=== PATIENT | female | born 1970 | race American Indian/Alaskan Native ===

== ENCOUNTER → 2022-11-24 07:50 | Outpatient (BNVA) | payer OTHER, SELFPAY | PROVIDERS: PCP Internal Medicine; Visit Provider Internal Medicine | DX: M25.512 Pain in left shoulder (principal) | CPT/HCPCS: 73030; 99203 ==

== ENCOUNTER → 2022-12-01 08:00 | Outpatient (BNVA) | payer OTHER, SELFPAY | PROVIDERS: PCP Internal Medicine; Visit Provider Internal Medicine | DX: M25.512 Pain in left shoulder (principal) | CPT/HCPCS: 99213 ==

== ENCOUNTER 2022-12-04 15:00 | Outpatient (REF) | payer OTHER, SELFPAY ==
--- NOTE | ~2022-12-04 | MR_ITS ---
EXAMINATION: MR SHOULDER WITHOUT CONTRAST, LEFT CLINICAL INFORMATION: Left shoulder pain and swelling. Decreased range of motion. Weakness. COMPARISON: Left shoulder radiographs dated 11/24/2022. TECHNIQUE: Multisequence MR imaging of the left shoulder was obtained without contrast on a high-field strength scanner. FINDINGS: ROTATOR CUFF: Complete versus near-complete supraspinatus tendon tear with thin posterior tendon fibers possibly remaining intact. Overall tearing measures up to 3.2 x 3.0 cm (AP by ML) with retraction of the torn tendon fibers to the humeral head apex. Mild infraspinatus tendinosis with anterior articular surface partial tearing. [id number] subscapularis tendinosis with superior articular surface partial tearing measuring up to 2.4 cm in ML dimension. Mild supraspinatus muscle atrophy. BICEPS: Intact. CORACOACROMIAL ARCH: The undersurface of the acromion is curved with subacromial spurring. Mild acromioclavicular osteoarthritis. LABRUM/CAPSULE: No labral tear. Intact inferior joint capsule. GLENOHUMERAL JOINT/MARROW: Intact articular cartilage. No acute osseous injury. Small joint effusion. MR/MR shoulder LT wo con IMPRESSION: 1. Complete versus near-complete supraspinatus tendon tear with thin posterior tendon fibers possibly remaining intact. Tear measures 3.2 x 3.0 cm (AP x ML) with retraction of the torn tendon fibers to the humeral head apex. Mild supraspinatus muscle atrophy. 2. Mild infraspinatus tendinosis with anterior articular surface partial tearing. [id number] subscapularis tendinosis with superior articular surface partial tearing. 3. Mild acromioclavicular osteoarthritis with subacromial spurring. 4. Small glenohumeral joint effusion.
== END 2022-12-04 15:01 | disposition home or self-care (01) ==
LOC: HO.MRI 15:00
PROVIDERS: PCP Internal Medicine; Visit Provider Internal Medicine
DX: M25.512 Pain in left shoulder (principal)
CPT/HCPCS: 73221

== ENCOUNTER 2022-12-09 09:00 | Outpatient (RCR) | payer OTHER, SELFPAY ==
--- NOTE | 2022-12-07 09:55 | MHC.PT.EP ---
[facility] [place] Office [place] Office [place] Office [address] Dilip Solis [address] [phone] F: [phone] F: [phone] F: [phone] F: [phone] Physical Therapy Plan of Care Date of Evaluation: Date of Surgery: Diagnosis: L RTC injury Assessment: 52 y/o RHD female referred to PT from work connection for L RTC injury. 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 Injury occurred while at work 09/10/22 as she was getting out of the engine wearing scba pack and it got caught in the seatbelt pulling her back into the engine. She felt immediate pain L anterior shoulder. She had an MRI 12/03/22 and awaiting results. Currently pain and difficulty with grooming, reaching, carrying, lifting, and work duties. S/s consistent with impingement and ?RTC tear secondary to decreased L shoulder AROM, full painfree PROM, TTP, decreased L RTC and biceps strength, and noted shoulder shrug mechanics. Recommend PT 3x/week for 3 weeks and then an additional 2x/week for 3 more weeks to address impairments, implement HEP, and optimize functional mobility. Frequency and Duration: The patient will be seen 3x/week for 6 weeks Short Term Goals: 3 weeks Compliant with HEP Pt will demonstrate increased L shoulder flexion and abduction AROM to >130* for improved ability to reach OH Pt will be able to perform grooming with pain <3/10 Piling Setter Goals: 6 weeks I with HEP and self management of sx Pt will demonstrate L shoulder strength to 4/5 to facilitate ability to perform lifting > 25# with pain < 3/10 and proper mechanics Pt will demonstrate ability to perform all carrying ADL's without difficulty and pain < 3/10 Treatment Plan: Modalities to reduce pain, spasms and effusion. Manual therapy to restore motion and function. Therapeutic exercise to improve strength and flexibility. Neuromuscular re-education for posture and balance. Therapeutic activities to return to functional activities of daily living. Electronically signed by: Sarah Zaidi PT Please sign and return to therapist. Thank you for your referral.
--- NOTE | 2023-01-08 10:18 | MHC.PT.DC ---
[facility] [place] Office [place] Office [place] Office [address] Dilip Solis [address] [phone] F: [phone] F: [phone] F: [phone] F: [phone] Physical Therapy Discharge Report Diagnosis: L RTC injury Date of Surgery: Date of Evaluation: 12/07/22 Date of Discharge: 01/08/23 Treatments to Date: 2 Cancellations to Date: 0 No Shows to Date: 0 Discharge Status: Discharge Summary: Pt called to cancel all appointments following MRI and MD appointment d/t RTC tear and she may be undergoing repair. D/c at this time following 30-day hold. Electronically signed by: Sarah Zaidi PT Please sign and return to therapist. Thank you for your referral.
== END 2023-01-08 10:18 | disposition home or self-care (01) ==
LOC: HO.PTCHIC 09:00
PROVIDERS: PCP Internal Medicine; Visit Provider Internal Medicine
DX: S46.002D Unspecified injury of muscle(s) and tendon(s) of the rotator cuff of left shoulder, subsequent encounter (principal)
CPT/HCPCS: 97110; 97140; 97161

== ENCOUNTER → 2022-12-10 09:33 | Outpatient (BNVA) | payer OTHER, SELFPAY | PROVIDERS: PCP Internal Medicine; Visit Provider Internal Medicine | DX: M25.512 Pain in left shoulder (principal) | CPT/HCPCS: 99213 ==

== ENCOUNTER → 2022-12-17 09:10 | Outpatient (BNVA) | payer OTHER, SELFPAY | PROVIDERS: PCP Internal Medicine; Visit Provider Internal Medicine | DX: M25.512 Pain in left shoulder (principal) | CPT/HCPCS: 99213 ==

== ENCOUNTER 2024-10-02 06:08 | Emergency (ER) | payer BC, SELFPAY ==
[2024-10-02 06:53] VITALS: BMI 41.2
--- NOTE | 2024-10-02 07:23 | ED.GENADULT ---
HPI - General Adult General Chief complaint: General Medical Stated complaint: pain right arm Time Seen by Provider: 10/02/24 07:22 Source: patient, RN notes reviewed and old records reviewed Mode of arrival: ambulatory Limitations: no limitations History of Present Illness ED Provider: [facility] narrative: Patient is a 54-year-old female presenting to the emergency department with complaint of pain to posterior and medial right upper arm, right side and right posterior shoulder for the past week. States has been using KT tape for a bicep tear, initially attributed the discomfort to that. States my skin hurts. Denies fevers, did recently have norovirus. Reports history of chicken pox in the past. Has been taking Tylenol for the discomfort. MD complaint: arm pain Onset (ago): week(s) Related Data Previous Rx's ?Medication ?Instructions ?Recorded gabapentin 100 mg capsule 100 mg PO TID #21 caps 10/02/24 valacyclovir 1 gram tablet 1,000 mg PO TID #21 tabs 10/02/24 Allergies Allergy/AdvReac Type Severity Reaction Status Date / Time No Known Allergies Allergy Verified 10/02/24 06:55 Review of Systems Review of Systems: As per HPI Yes all other systems are reviewed and are negative Constitutional: Constitutional: Reports as per HPI [facility] Social History Social History Advance Directives: No Advance Directives Information Provided: Yes Do you have a plan to hurt others: No Plan Physical Exam ED Vital Signs: BMI result Body Mass Index 41.2 Const General: cooperative, healthy appearing and no acute distress Orientation/consciousness: oriented to person, oriented to place, oriented to time and patient oriented x3 Limitations: no limitations [facility] Head: Yes normocephalic and Yes atraumatic Ears: external ears normal General nose exam: Normal external nose present Face and sinus: Yes face symmetric Mouth: oropharynx normal and moist mucous membranes Throat: Yes uvula midline Eyes Pupils: Equal, round and reactive pupils present Neck Neck: Yes normal visual inspection and Yes supple Resp Effort & Inspection: normal respiratory effort and able to speak in complete sentences Auscultation: clear to auscultation bilaterally Cardio Rate: regular rate Rhythm: regular rhythm Heart sounds: S1 normal heart sound present and S2 normal heart sound present GI Palpation (GI): Soft to palpation and nontender Auscultation: normoactive bowel sounds General: Yes no CVA tenderness Back/Spine/Pelvis Back: no CVA tenderness Skin General skin exam: elasticity normal and turgor normal Rashes: rashes noted vesicles right posterior upper arm size (1-2mm), arrangement clustered, color red and tender Neuro General: oriented to person, oriented to place, oriented to time, patient oriented x3, moves all extremities, no focal motor deficits and CN's II-XI intact bilaterally Cranial nerves: Yes Equal, round and reactive pupils present Cognition (Neuro): normal cognition Extrem General: Yes full ROM, Yes no pedal edema and Yes no calf tenderness Psych Mental Status: mental status grossly normal Affect: normal affect Thought process: Normal thought process present Medical Decision Making Medical Decision Making [facility] Narrative: Patient is a 54-year-old female presenting to the emergency department with complaint of pain to posterior and medial right upper arm, right side and right posterior shoulder for the past week. On exam patient is awake, A+Ox3, BP elevated, VS otherwise WNL, afebrile, normal neurological exam without focal deficits, physical exam findings as above. Patient states did not take her BP medication this am as she came in straight from work. Denies chest pain, headache, visual changes. Given reported symptoms and physical exam findings, initial differential includes but is not limited to herpes zoster, contact dermatitis, abrasion r/t tape. Physical exam findings consistent with herpes zoster, discussed with patient and all questions answered. Will treat with valacyclovir and gabapentin for pain. Follow up with PCP as needed. Return precautions discussed. Patient verbalized understanding of and agreement with plan. Differential Diagnosis Differential Diagnoses: The differential diagnosis associated with the presentation includes As per [facility] External Record Review External record reviewed: Inpatient record, Office record and Outpatient record Prescription Management I considered prescription management with: Pain Medication and Antiviral Discharge Plan Discharge Clinical Impression: Herpes zoster Patient Disposition: Home, Self-Care Instructions: Shingles (ED) Additional Instructions: You were evaluated in the emergency department today for right sided pain. Your physical exam is consistent with shingles. This can be spread to anyone who has not had chickenpox or been vaccinated against chickenpox. You should avoid infants, those who are or immunocompromised until your rash has completely crusted over. You are being prescribed antiviral medication, take this as prescribed. Follow up with your primary care provider as needed. Return to the emergency department if you develop new weakness, numbness, tingling, seizures, confusion, or any other new or concerning symptoms. Prescriptions: New valacyclovir 1 gram tablet 1,000 mg PO TID Qty: 21 0RF gabapentin 100 mg capsule 100 mg PO TID Qty: 21 0RF Print Language: Guyanese
[2024-10-02 07:44] VITALS: BP 182/87; PULSE 56; RESP 16; TEMP 36.4; O2SAT 97
[2024-10-02 07:46] VITALS: BP 182/87; PULSE 56; RESP 16; TEMP 36.4; O2SAT 97
== END 2024-10-02 07:50 | disposition home or self-care (01) ==
PROVIDERS: Emergency Provider Student in an Organized Health Care Education/Training Program; PCP Internal Medicine
DX: B02.9 Zoster without complications (principal)
CPT/HCPCS: 99282; 99283

== ENCOUNTER → 2025-06-11 12:57 | Outpatient (BNVA) | payer OTHER, SELFPAY | PROVIDERS: PCP Internal Medicine; Visit Provider Emergency Medicine | DX: S63.602A Unspecified sprain of left thumb, initial encounter (principal); X50.1XXA Overexertion from prolonged static or awkward postures, initial encounter | CPT/HCPCS: 73130; 99203 ==

== ENCOUNTER → 2025-06-18 08:02 | Outpatient (BNVA) | payer OTHER, SELFPAY | PROVIDERS: PCP Internal Medicine; Visit Provider Emergency Medicine | DX: S63.602A Unspecified sprain of left thumb, initial encounter (principal); X50.1XXA Overexertion from prolonged static or awkward postures, initial encounter; Z02.79 Encounter for issue of other medical certificate | CPT/HCPCS: 99213 ==